=== PATIENT | female | born 1970 | race African-American/Black ===

== ENCOUNTER 2022-02-23 19:13 | Emergency (ER) | payer OTHER ==
[~2022-02-23] VITALS: Ht 157.5 cm; Wt 109.0 kg
[2022-02-23] MEDS ORDERED: CYCL-837 PO (23:22)
[2022-02-23] MEDS ORDERED: IBUP800T26 PO (23:22)
[2022-02-23] MEDS ORDERED: KETOROLAC TROMETH 60MG/2ML VIAL IM ONE (23:30)
[2022-02-24 00:11] VITALS: BP 145/90
== END 2022-02-24 00:15 | disposition home or self-care (01) ==
LOC: ER 19:13 → EDBD 19:13 → ER 02-24 00:11
DX: M25.561 Pain in right knee (principal)
CPT/HCPCS: 73562; 96372; 99283; J1885